=== PATIENT | male | born 1990 | race Hispanic/Latino ===

== ENCOUNTER 2021-05-09 16:59 | Emergency (ER) | payer SELFPAY ==
[2021-05-09] MEDS ORDERED: Acetaminophen 500 MG TAB ONE ×2 (18:07→18:08)
[2021-05-09] MEDS ORDERED: Ondansetron ODT 4 MG TAB ONE (18:07)
[2021-05-10 08:16] LABS: SARS-CoV-2 PCR by NAA DETECTED (NotDetected)
== END 2021-05-09 18:18 | disposition home or self-care (01) ==
LOC: NAV ERS 16:59
DX: U07.1 COVID-19 (principal); F17.290 Nicotine dependence, other tobacco product, uncomplicated
CPT/HCPCS: 87804; 99283; Q0162; U0003; U0005